=== PATIENT | male | born 1995 | race Caucasian/White ===

== ENCOUNTER 2022-10-01 03:17 | Emergency (ER) | payer OTHER ==
[~2022-10-01] VITALS: Ht 175.3 cm; Wt 86.4 kg
[~2022-10-01 03:17] MED LIST: ARIP300S IM; QUET200T PO
[2022-10-01 04:37] VITALS: BP 118/67
== END 2022-10-01 07:22 | disposition home or self-care (01) ==
LOC: EMS 03:19
DX: F10.929 Alcohol use, unspecified with intoxication, unspecified (principal); F32.A Depression, unspecified; F20.9 Schizophrenia, unspecified; F17.210 Nicotine dependence, cigarettes, uncomplicated; F12.90 Cannabis use, unspecified, uncomplicated; Z98.890 Other specified postprocedural states; X58.XXXA Exposure to other specified factors, initial encounter; Y93.89 Activity, other specified; Y92.89 Other specified places as the place of occurrence of the external cause; Y99.8 Other external cause status
CPT/HCPCS: 99283; Z7502